=== PATIENT | male | born 1995 | race Two or more races ===

== ENCOUNTER 2018-11-11 05:03 | Day surgery (SDC) | payer OTHER ==
[~2018-11-11] VITALS: Ht 170.2 cm; Wt 61.2 kg
[2018-11-11] VITALS (11 sets, daily range): BP systolic 101–135; BP diastolic 45–86
[~2018-11-11 05:03] MED LIST: NKM
[2018-11-11] MEDS ORDERED: oxyCONTIN 20mg tab ORAL ONE (06:00)
[2018-11-11] MEDS ORDERED: ceFAZolin 1gm IVPB IVPB ONE ×2 (06:00)
[2018-11-11] MEDS ORDERED: celeBREX 200mg Cap **SURGERY PATIENTS ONLY ORAL ONE (06:00)
[2018-11-11] MEDS ORDERED: NS Irrig 4000ml IRRIG ONE (07:00)
[2018-11-11] MEDS ORDERED: LR 1000ml ONE (07:00)
[2018-11-11] MEDS ORDERED: Midazolam 2mg/2ml Inj ONE (07:06)
[2018-11-11] MEDS ORDERED: fentaNYL 100 mcg/2 mL ONE (07:06)
[2018-11-11] MEDS ORDERED: Propofol 200mg/20ml IV ONE (07:06)
[2018-11-11] MEDS ORDERED: Lidocaine 1% MPF 10mg/ml 5ml ONE (07:06)
[2018-11-11] MEDS ORDERED: Ketorolac 30mg Inj ONE ×2 (07:07→07:22)
--- NOTE | 2018-11-11 07:18 | Pre-Procedure Note/Attestation ---
Pre-Procedure Note/Attestation Complete Prior to Procedure Planned Procedure: right Procedure Narrative: knee arthroscopy, possible menisectomy Indications for Procedure Pre-Operative Diagnosis: right knee menicus tear Attestation I attest that I discussed the nature of the procedure; its benefits; risks and complications; and alternatives (and the risks and benefits of such alternatives ), prior to the procedure, with the patient (or the patient's legal shipping services sales representative). I attest that, if there was a reasonable possibility of needing a blood transfusion, the patient (or the patient's legal shipping services sales representative) was given the [facility] standardized written summary, pursuant to the Jorge Yefri Blood Safety Act ([place] Health and Safety Code # 1645, as amended). I attest that I re-evaluated the patient just prior to the surgery and that there has been no change in the patient's H&P, except as documented below: Joe Raya MD Nov 11, 2018 07:18
--- NOTE | 2018-11-11 07:18 | Operative Note - PDOC ---
Operative Note Operative Note Pre-op Diagnosis: right knee menicus tear Procedure: see op report Post-op Diagnosis: same as pre-op plus Operative Findings: consistent w/pre-op dx studies Anesthesia: MAC Specimen: none Complications: none Condition: stable Estimated Blood Loss: none Implant(s) used?: No Joe Raya MD Nov 11, 2018 07:18
[2018-11-11] MEDS ORDERED: Kenalog-40 1ml Vial ONE (07:22)
[2018-11-11] MEDS ORDERED: Lidocaine 1% 10mg/ml/Epi 0.005mg/ml 30ml vial INJ ONE (07:23)
[2018-11-11] MEDS ORDERED: Duramorph PF 5mg/10ml amp ONE (07:23)
[2018-11-11] MEDS ORDERED: Bupivacaine 0.25% Inj 30ml INJ ONE (07:23)
[2018-11-11] MEDS ORDERED: Bupivacaine w/Epi 0.5% 30ml Vial INJ ONE (07:23)
[2018-11-11] MEDS ORDERED: HYDROcodone/Acetamin 5/325 tab ORAL PRN (07:30)
[2018-11-11] MEDS ORDERED: D5 1/2NS 1,000 ML IV SCH (07:30)
[2018-11-11] MEDS ORDERED: Tylenol #3 tab (300mg/30mg) ORAL PRN (07:30)
[2018-11-11] MEDS ORDERED: HYDROmorphone 1mg/ml Carpuject SUBQ PRN (07:30)
[2018-11-11] MEDS ORDERED: Duramorph PF 5mg/10ml amp IV ONE (07:40)
--- NOTE | 2018-11-11 07:53 | Anethesia Preoperative Eval ---
Anesthesia Pre-op PMH/ROS General Date of Evaluation: Nov 11, 2018 Time of Evaluation: 07:10 Anesthesiologist: Shahnaz ASA Score: ASA 1 Mallampati Score Class I : Soft palate, uvula, fauces, pillars visible Class II: Soft palate, uvula, fauces visible Class III: Soft palate, base of uvula visible Class IV: Only hard plate visible Mallampati Classification: Class II Surgeon: Elver Diagnosis: R knee pain Surgical Procedure: R knee scope Anesthesia History: none Family History: no anesthesia problems Allergies: Coded Allergies: No Known Allergies (Unverified , 11/10/18) Medications: see eMAR Patient NPO?: Yes Past Medical History Cardiovascular: Denies: HTN, CAD, [place], valve dz, arrhythmia, other Pulmonary: Denies: asthma, COPD, DOUG, other Gastrointestinal/Genitourinary: Denies: GERD, CRI, ESRD, other Neurologic/Psychiatric: Denies: dementia, CVA, depression/anxiety, TIA, other Endocrine: Denies: DM, hypothyroidism, steroids, other HEENT: Denies: cataract (L), cataract (R), glaucoma, [place] (L), [place] (R), other Hematology/Immune: Denies: anemia, DVT, bleeding disorder, other Musculoskeletal/Integumentary: Denies: OA, RA, DJD, DDD, edema, other PMH Narrative: as above PSxH Narrative: None Anesthesia Pre-op Phys. Exam Physician Exam Last Vital Signs Date Time Temp Pulse Resp B/P (MAP) Pulse Ox O2 Delivery O2 Flow Rate FiO2 11/11/18 05:41 Room Air 11/11/18 05:37 97.7 64 18 108/61 97 Constitutional: NAD Neurologic: CN 2-12 intact Cardiovascular: RRR, no M/R/G Respiratory: CTA Gastrointestinal: S/NT/ND Airway Exam Mallampati Score: Class II MO: full Neck: flexible ROM: full Teeth: intact Dentures: no upper, no lower Anesthesia Pre-op A/P Labs see chart Risk Assessment & Plan Assessment: ASA 1 Plan: GA with LMA Status Change Before Surgery: No Pre-Antibiotics Drug: Ancef 1gr Given Within 1 Hr of Incision: Yes Time Given: 07:50 Randolph Christie MD Nov 11, 2018 07:53
[2018-11-11] MEDS ORDERED: Ketorolac 30mg Inj IV PRN (08:00)
[2018-11-11] MEDS ORDERED: DiphenhydrAMINE 50mg/ml Inj IVP PRN (08:00)
[2018-11-11] MEDS ORDERED: Meperidine 50mg/ml Inj(FOR RIGORS ONLY) IV PRN (08:00)
[2018-11-11] MEDS ORDERED: Metoclopramide 10mg/2ml Inj IVP PRN (08:00)
--- NOTE | 2018-11-11 08:19 | Immediate Post-Op Evaluation ---
Immediate Post-Op Evalulation Immediate Post-Op Evalulation Procedure: R knee arthroscopy meniscectomy Date of Evaluation: Nov 11, 2018 Time of Evaluation: 08:18 IV Fluids: 800 Blood Products: none Estimated Blood Loss: min Urinary Output: none Blood Pressure Systolic: 104 Blood Pressure Diastolic: 56 Pulse Rate: 64 Respiratory Rate: 20 O2 Sat by Pulse Oximetry: 99 Temperature (Fahrenheit): 97.6 Pain Score (1-10): 1 Nausea: No Vomiting: No Complications none Patient Status: reacts, patent, none Hydration Status: adequate Randolph Christie MD Nov 11, 2018 08:19
--- NOTE | 2018-11-11 18:15 | Operative Note - Dictated ---
DATE OF OPERATION: 11/11/2018 PREOPERATIVE DIAGNOSIS: Right knee internal derangement and possible meniscal tear. POSTOPERATIVE DIAGNOSES: 1. Right knee anterior horn lateral meniscus tear. 2. Hypertrophic fat pad. 3. Synovitis. PROCEDURES: 1. Right knee diagnostic arthroscopy. 2. Right knee synovectomy medial, lateral, and patellofemoral compartments. SURGEON: Joe Raya M.D. ANESTHESIA: MAC. INDICATION FOR PROCEDURE: The patient is a 23-year-old gentleman with continued lateral joint pain, had an MRI, which showed a possible meniscal tear. The patient failed conservative treatment, elected to undergo right knee diagnostic arthroscopy and possible lateral meniscectomy. Risks, limitations, expectations, and complications of the procedure were discussed in detail. All questions were addressed. DESCRIPTION OF PROCEDURE: After informed consent was obtained, the patient was brought to the operating room and placed under general anesthesia. Right leg was prepped and draped in a standard fashion. Ancef was administered. Time-out was performed. Inferolateral stab incision was then made. Trocar was introduced into the lateral gutter in the patellofemoral compartment. There was significant resistance in putting the trocar into the knee joint. There was hypertrophic fat pad and synovial tissue in patellofemoral compartment. medial gutter was free of loose bodies. Medial compartment was entered. There was no obvious meniscal chondral damage. There was hypertrophic fat pad anteriorly. Medial working portal was established. Excision of the fat pad was performed to better visualize the anterior horn. This was extended into the intercondylar notch, lateral compartment. The ACL was probed. Lateral compartment was then entered. No obvious tear of the posterior horn and mid body. Anterior horn was difficult to visualize until synovectomy was extended into the lateral gutter. Once this was done, there was a longitudinal tear at the anterior horn of lateral meniscus with which he was in the periphery. Therefore, a formal meniscectomy was not required tear. At this point, the camera was placed in the patellofemoral compartment. Excision of the fat pad synovial tissue was completed. Once this was done, the instruments were removed. Portal sites were closed with 3-0 Monocryl sutures. Steri-Strips and a sterile dressing were applied. The patient was awoken and taken to recovery room. ESTIMATED BLOOD LOSS: None. COMPLICATIONS: None. SPECIMENS: None. IMPLANTS: None. Joe Raya M.D. DR: JA JOB#: [id number] CC:
== END 2018-11-11 09:45 | disposition home or self-care (01) ==
LOC: SUR 05:03
DX: S83.281A Other tear of lateral meniscus, current injury, right knee, initial encounter (principal); M79.4 Hypertrophy of (infrapatellar) fat pad; M65.9 Synovitis and tenosynovitis, unspecified; X58.XXXA Exposure to other specified factors, initial encounter; Y92.9 Unspecified place or not applicable
CPT/HCPCS: 29876; J0690; J1885; J2250; J2405; J2704; J3010; J3301; J3490; 94003; 94150